=== PATIENT | female | born 1965 ===

== ENCOUNTER → 2017-08-07 | Outpatient (REF) ==
[2017-08-07 15:36] LABS: HIV 1/2 Antibodies Non-Reactive; HIV-1p24 Antigen Non-Reactive
[2017-08-08 00:32] LABS: HEPATITIS B SURFACE ANTIBODY 146.9 (()); HEPATITIS B SURFACE ANTIGEN Negative (()); HEPATITIS C VIRUS ANTIBODY Negative (())
== END ==
LOC: ZMSC 14:31
PROVIDERS: Orthopaedic Surgery
DX: Z01.89 Encounter for other specified special examinations (principal)